=== PATIENT | female | born 1985 | race American Indian/Alaskan Native ===

== ENCOUNTER 2021-06-18 11:37 | Emergency (ER) | payer SELFPAY ==
[2021-06-18 14:25] VITALS: BP 137/76
--- NOTE | 2021-06-18 14:59 | Emergency Department Report ---
ED Female HPI - General Chief complaint: Urogenital-Female Stated complaint: tampon stuck Time Seen by Provider: 06/18/21 14:24 Source: patient Mode of arrival: Ambulatory Limitations: No Limitations - History of Present Illness Initial comments: The patient was evaluated in the emergency department for symptoms described in the history of present illness. He/she was evaluated in the context of the global COVID-19 pandemic, which necessitated consideration that the patient might be at risk for infection with the virus that causes COVID-19. Inst itutional protocols and algorithms that pertain to the evaluation of patients at risk for COVID-19 are in a state of rapid change based on information released by regulatory bodies including the CDC and federal and state organizations. These policies and algorithms were followed during the patient's care in the emergency department. Please note that these policies, procedures and recommendations changed on a rapid basis. 35-year-old -[place] female presents to the emergency room for retained tampon that been in vaginal area for about a week. Patient states that this is happened to her in the past. She denies any fever chills but does admit to vaginal discharge with an odor. She denies any pelvic pain no dysuria. Patient reports she is not concerned for STD. Denies any past medical history currently takes no medications on a daily basis. She is 4 para 1 with 2 abortions and one ectopic . - Related Data Previous Rx's Medication Instructions Recorded Last Taken Type metroNIDAZOLE [Flagyl] 500 mg PO Q8HR 7 Days #21 tablet 06/18/21 Unknown Rx Allergies Allergy/AdvReac Type Severity Reaction Status Date / Time No Known Allergies Allergy Unverified 06/18/21 12:54 ED Review of Systems ROS: Stated complaint: tampon stuck Other details as noted in HPI Comment: All other systems reviewed and negative ED Past Medical Hx - Past Medical History Previous Medical History?: No Additional medical history: denies - Surgical History Past Surgical History?: Yes Additional Surgical History: salpingectomy - Social History Smoking Status: Never Smoker Substance Use Type: None - Medications Home Medications: Home Medications Medication Instructions Recorded Confirmed Last Taken Type metroNIDAZOLE [Flagyl] 500 mg PO Q8HR 7 Days #21 tablet 06/18/21 Unknown Rx ED Physical Exam - General Limitations: No Limitations General appearance: alert, in no apparent distress - Head Head exam: Present: atraumatic, normocephalic - Eye Eye exam: Present: normal appearance - ENT ENT exam: Present: normal external ear exam - Neck Neck exam: Present: normal inspection, full ROM - Respiratory Respiratory exam: Absent: accessory muscle use - Cardiovascular Cardiovascular Exam: Present: regular rate - GI/Abdominal GI/Abdominal exam: Present: soft. Absent: distended, tenderness - External exam: Present: normal external exam Speculum exam: Present: vaginal discharge, foreign body Bi-manual exam: Present: normal bi-manual exam - Extremities Exam Extremities exam: Present: normal inspection - Back Exam Back exam: Present: normal inspection - Neurological Exam Neurological exam: Present: alert, oriented X3, normal gait - Psychiatric Psychiatric exam: Present: normal affect, normal mood - Skin Skin exam: Present: warm, dry, intact, normal color. Absent: rash ED Course Vital Signs 06/18/21 12:53 Temperature 97.9 F Pulse Rate 66 Respiratory 16 Rate Blood Pressure 137/76 O2 Sat by Pulse 100 Oximetry ED Medical Decision Making - Medical Decision Making 35-year-old -[place] female presents to the emergency room for retained tampon that been in vaginal area for about a week. Patient states that this is happened to her in the past. She denies any fever chills but does admit to vaginal discharge with an odor. She denies any pelvic pain no dysuria. Patient reports she is not concerned for STD. Denies any past medical history currently takes no medications on a daily basis. She is 4 para 1 with 2 abortions and one ectopic . Tampon was removed using vaginal forceps. Vaginal discharge with vaginal odor. Patient be discharged home on Flagyl instructed to not use tampons if she continues to have difficulty finding them and having no retained. Patient recommended to follow-up with a [facility]. Critical care attestation.: If time is entered above; I have spent that time in minutes in the direct care of this critically ill patient, excluding procedure time. ED Disposition Clinical Impression: Retained tampon, Vaginitis Disposition: HOME / SELF CARE / HOMELESS Is pt being admited?: No Does the pt Need Aspirin: No Condition: Stable Instructions: Bacterial Vaginosis, [id number], Vaginal Foreign Body, [id number] Additional Instructions: Complete antibiotics as prescribed. Do not drink alcohol while taking Flagyl. Do not douche avoid tampons as much as possible. Follow-up with [facility]. Prescriptions: metroNIDAZOLE [Flagyl] 500 mg PO Q8HR 7 Days #21 tablet Referrals: PRIMARY CARE [Primary Care Provider] - 3-5 Days [facility] [Provider Group] - 3-5 Days [facility] [Provider Group] - 3-5 Days Forms: Work/School Release Form(ED) Time of Disposition: 15:03
== END 2021-06-18 15:16 | disposition home or self-care (01) ==
LOC: ED 11:37
DX: T19.2XXA Foreign body in vulva and vagina, initial encounter (principal); N76.0 Acute vaginitis; Z98.890 Other specified postprocedural states; X58.XXXA Exposure to other specified factors, initial encounter; Y93.89 Activity, other specified; Y92.89 Other specified places as the place of occurrence of the external cause; Y99.8 Other external cause status
CPT/HCPCS: 99282; 99283